=== PATIENT | female | born 1930 | race Caucasian/White ===

== ENCOUNTER → 2016-10-03 | Outpatient (CLI) | payer MEDICARE ==
[~2016-10-03] VITALS: Ht 149.9 cm; Wt 62.1 kg
[~2016-10-03] MED LIST: ALPR0.254 PO; AMLO10TA2 PO; ASPI-983 PO; ATEN100T PO; ATOR10TA PO; CALC-654 PO; CATHETER FLUSH 10 ML SYR IV PRN; CHOL20003 PO; CLOP75TA28 PO; CNC1KV IJ; D-HIST PO; FLUT16SP22 NS; LEVO112T55 PO; MELO15TA14 PO; MULT-422 PO; REGADENOSON 0.4 MG/5 ML SYR (LEXISCAN) IV ONE; SULF1TAB35 PO; TURM500C4 PO
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
[2016-10-03 08:05] VITALS: BP 185/76
[2016-10-03 08:08] VITALS: BP 176/74
[2016-10-03 08:11] VITALS: BP 155/67
--- NOTE | 2016-10-03 18:30 | STRESS TEST ---
PROCEDURE PHYSICIAN: MIRIAM THORPE DATE OF PROCEDURE: 10/03/2016 NUCLEAR MYOVIEW REPORT REFERRING PHYSICIAN: Dr. Guerra. SUMMARY: The patient was injected with 10.09 mCi of technetium 99 Myoview and the resting images were obtained. With peak stress level, 32.3 mCi of technetium 99 Myoview were injected and the stress images were obtained. The stress and rest images were reviewed and compared in the short axis, horizontal long axis, and vertical long axis views. Review of the images showed breast attenuation with mild decreased uptake involving the mid to apical anterior wall, anterolateral wall, with mild reversibility. SSS 5, SDS 5. TID. value 1.15. On the gated images, the left ventricle appeared to be normal size with normal contractility. Calculated ejection fraction 75%. CONCLUSION: 1. Breast attenuation with mild ischemia involving the mid to apical anterior wall. 2. Normal left ventricular size with normal contractility. Calculated ejection fraction 75%. Job ID: [id number] Dictated Date: 10/03/2016 16:59:02 Preparing Box Tender Date: 10/03/2016 18:27:19 / [place]
== END ==
LOC: CARD 06:40
PROVIDERS: ATTEND Internal Medicine
DX: R53.83 Other fatigue (principal); I11.0 Hypertensive heart disease with heart failure; I51.9 Heart disease, unspecified; R07.9 Chest pain, unspecified
CPT/HCPCS: 78452; 93017

== ENCOUNTER → 2016-10-12 | Outpatient (CLI) | payer MEDICARE ==
[~2016-10-12] MED LIST changes: -CATHETER FLUSH 10 ML SYR IV PRN; -REGADENOSON 0.4 MG/5 ML SYR (LEXISCAN) IV ONE
--- NOTE | 2016-10-12 21:37 | ECHOCARDIOGRAPHY REPORT ---
PROCEDURE PHYSICIAN: MIRIAM THORPE DATE OF PROCEDURE: 10/12/2016 TWO DIMENSIONAL ECHOCARDIOGRAM REPORT PRIMARY PHYSICIAN: OTHER PHYSICIAN: REFERRING PHYSICIAN: Dr. Esa Guerra ORDERING PHYSICIAN: INDICATION FOR THE PROCEDURE: MEASUREMENTS DERIVED VALUES LV DIAMETER (LAX) NORMALS NORMALS Diastolic 3.7 (3.6-5.2) Eject. Fract. 60% (60%+/-6%) Systolic (2.3-3.9) Diastolic Vol. % Shortening (0.22-0.42) Systolic Vol. Aortic Root IVS THICKNESS Diastolic 1.1 (0.6-1.1) LVPW THICKNESS Diastolic 1.1 (0.6-1.1) LA DIAMETER Systolic 3.9 (2.1-3.7) FINDINGS: 1. Technical quality is good. 2. The left ventricle is normal in size with normal contractility. Systolic function appeared to be normal. Estimated ejection fraction 60%. Diastolic dysfunction is suggested by Doppler. 3. The left atrium is normal in size. No clot or thrombus were seen within the left atrium. 4. The right atrium and right ventricle are prominent. No clot or thrombus were seen within the right side. 5. Mitral valve is normal in morphology with mild mitral regurgitation noted by color Doppler flow. No mitral valve prolapse. No mitral valve stenosis. 6. Aortic valve is trileaflet with normal opening and closing pattern. No significant aortic stenosis or regurgitation was seen. 7. Tricuspid valve is normal in morphology with mild tricuspid regurgitation noted by color Doppler flow. Doppler across tricuspid valve estimated pulmonary artery pressure of 45+ right atrial pressure. 8. Pulmonic valve is functioning normally. 9. No pericardial effusion. CONCLUSION: 1. Normal left ventricular size and systolic function. Estimated ejection fraction 60%. Diastolic dysfunction is suggested by Doppler. 2. Prominent right heart chambers with pulmonary hypertension with estimated pulmonary artery pressure of 50 to 55 mmHg. 3. Mild mitral and tricuspid regurgitation. Job ID: [id number] Dictated Date: 10/12/2016 17:16:39 Rental Car Porter Date: 10/12/2016 21:33:37 / [place]
== END ==
LOC: CARD 12:44
PROVIDERS: ATTEND Internal Medicine
DX: R53.83 Other fatigue (principal); I10 Essential (primary) hypertension; R07.9 Chest pain, unspecified; I27.2 Other secondary pulmonary hypertension; I08.1 Rheumatic disorders of both mitral and tricuspid valves
CPT/HCPCS: 93306

== ENCOUNTER 2016-11-24 07:40 | Day surgery (SDC) | payer MEDICARE ==
[2016-11-24] VITALS (9 sets, daily range): BP systolic 106–183; BP diastolic 62–80
[~2016-11-24] VITALS: Ht 149.9 cm; Wt 59.0 kg
[~2016-11-24 07:40] MED LIST changes: -ALPR0.254 PO; -ASPI-983 PO; -ATOR10TA PO; -CALC-654 PO; -CHOL20003 PO; -CLOP75TA28 PO; -CNC1KV IJ; -D-HIST PO; -MULT-422 PO; -TURM500C4 PO
[2016-11-24] MEDS ORDERED: NS IV 1000 ML 1,000 ML ONE (07:48)
[2016-11-24] MEDS ORDERED: HEParin (CATH LAB) 2,000 ML IV ONE (07:48)
[2016-11-24] MEDS ORDERED: LIDOCAINE 1% INJ 20 ML (XYLOCAINE) VIAL ONE (07:48)
[2016-11-24] MEDS ORDERED: NS IV 1000 ML 1,000 ML IV SCH ×2 (07:56→08:15)
[2016-11-24 08:20] LABS: BILIRUBIN,URINE NEGATIVE (NEGATIVE); KETONES,URINE NEGATIVE (NEGATIVE); LEUKOCYTE ESTERASE ,URINE 2+ (NEGATIVE); NITRITE,URINE NEGATIVE (NEGATIVE); PH,URINE 6.5 (5-9); PROTEIN,URINE NEGATIVE (NEGATIVE); UROBILINOGEN,URINE NORMAL (NORMAL)
[2016-11-24 08:20] LABS: MEAN PLATELET VOLUME 9.3 FL (7.4-10.4); RED BLOOD COUNT 4.85 10^6/uL (4.35-5.85); RED CELL DISTRIBUTION WIDTH 14.8 % (10.0-14.5); WHITE BLOOD COUNT 7.9 10^3/uL (4.3-11.0)
[2016-11-24 08:30] LABS: PROTHROMBIN TIME PATIENT 12.8 SEC (12.2-14.7)
[2016-11-24 08:38] LABS: ALANINE AMINOTRANSFERASE 10 U/L (0-55); ANION GAP 10 MMOL/L (5-14); ASPARTATE AMINO TRANSFERASE 13 U/L (5-34); BILIRUBIN,TOTAL 1.3 MG/DL (0.1-1.0); BLOOD UREA NITROGEN 19 MG/DL (7-18); BUN/CREATININE RATIO 24; CALCIUM 9.5 MG/DL (8.5-10.1); CARBON DIOXIDE 23 MMOL/L (21-32); CHLORIDE 106 MMOL/L (98-107); CREATININE SERUM 0.79 MG/DL (0.60-1.30); GFR ESTIMATED > 60; GLUCOSE 103 MG/DL (70-105); POTASSIUM 4.1 MMOL/L (3.6-5.0); SODIUM 139 MMOL/L (135-145); TOTAL PROTEIN 6.7 G/DL (6.4-8.2)
[2016-11-24] MEDS ORDERED: MULT-422 PO (08:54)
[2016-11-24] MEDS ORDERED: CNC1KV IJ (08:54)
[2016-11-24] MEDS ORDERED: CHOL20003 PO (08:54)
[2016-11-24] MEDS ORDERED: CALC-654 PO (08:54)
[2016-11-24] MEDS ORDERED: TURM500C4 PO (08:54)
[2016-11-24] MEDS ORDERED: D-HIST PO (08:54)
[2016-11-24] MEDS ORDERED: ALPR0.254 PO (08:54)
[2016-11-24] MEDS ORDERED: MIDAZOLAM 5 MG/5 ML (VERSED) VIAL ONE (10:53)
[2016-11-24] MEDS ORDERED: fentaNYL INJECTION 100 MCG/2 ML AMP ONE (10:53)
--- NOTE | 2016-11-24 11:05 | Cardiac Procedure Note-CS/ASA ---
Pre-Procedure Note Pre-Op Procedure Note H&P Reviewed The H&P was reviewed, patient examined and no changes noted. Date H&P Reviewed: November 24, 2016 Time H&P Reviewed: 11:05 Conscious Sedation Pre-Proced Time Reviewed: 11:05 ASA Class: 3 Airway Mallampati Classification: (nooksack appropriate class) I. II. III, IV Lungs Heart ASA score ASA 1: a normal healthy patient ASA 2: a patient with a mild systemic disease (mid diabetes, controlled hypertension, obesity ASA 3: a patient with a severe systemic disease that limits activity (angina , COPD, prior Myocardial infarction) ASA 4: a patient with an incapacitating disease that is a constant threat to life (CHF, renal failure) ASA 5: a moribund patient not expected to survive 24 hrs. (ruptured aneurysm) ASA 6: a declared brain patient whose organs are being harvested. For emergent operations, add the letter E after the classification Grade 1 Sedation Plan: Analgesia, Amnesia, Plan communicated to team members, Discussed options with patient/fam, Discussed risks with patient/fam Note The patient is an appropriate candidate to undergo the planned procedure, sedation, and anesthesia. The patient immediately re-assessed prior to indication. Ash RODRIGUEZ MD November 24, 2016 11:05 am
[2016-11-24] MEDS ORDERED: HEParin 1000 UNIT/ML (10ML VIAL) FOR BOLUS ONE (12:01)
[2016-11-24] MEDS ORDERED: ADENOSINE 3 MG/1 ML (ADENOSCAN) 30ML VIAL IV ONE (12:01)
[2016-11-24] MEDS ORDERED: CLOPIDOGREL 300 MG (PLAVIX) TABLET PO ONE (12:20)
[2016-11-24] MEDS ORDERED: NITROGLYCERIN DRIP 25 MG/D5W 0 ML IV ONE (12:31)
--- NOTE | 2016-11-24 13:00 | Cardiology Post Procedure Note ---
Post-Procedure Note Post-Op Procedure Note Procedure Start Date: November 24, 2016 Procedure Start Time: 11:30 Name of Procedure: LHC, RHC, Coronary Angiography, FFR and PCI to LAD Findings/Procedure Note Mild Pulmonary Hypertension, Normal PCWP, Severe LAD stenosis treated with two JOVANY (Xience [id number] and 2.5x15mm overlap) . Anesthesia Type: Conscious Sedation Estimated blood loss (mL): 30 ml Contrast Amount: 246 ml Post-Operative Diagnosis Post-operative diagnosis: Severe LAD disease treated with 2 JOVANY Ash RODRIGUEZ MD November 24, 2016 1:00 pm
[2016-11-24] MEDS ORDERED: PATIENT MAY USE OWN MEDS, ALL PO SCH (13:15)
[2016-11-24] MEDS: NS IV 1000 ML 1,000 ML IV SCH ×2 (13:25→17:01)
--- NOTE | 2016-11-24 17:51 | CARDIAC CATHETERIZATION ---
DATE OF SERVICE: 11/24/2016 CORONARY ANGIOGRAPHY AND LEFT HEART CATHETERIZATION INDICATION: 1. Recurrent chest pain, abnormal nuclear stress test. 2. Pulmonary hypertension. PREOPERATIVE DIAGNOSES: Chest pain, shortness of breath, abnormal nuclear stress test. POSTOPERATIVE DIAGNOSES: 1. Severe left anterior descending disease, status post percutaneous coronary intervention to the left anterior descending with two drug eluting stent. 2. Mild pulmonary hypertension with normal wedge pressure. HISTORY: The patient is an 86-year-old lady who presented with chest pain and shortness of breath. Nuclear stress test was done which showed anterior ischemia. Echocardiogram showed normal LV function, however, PA pressure was 55 mmHg. Therefore, left heart catheterization, coronary angiography and right heart catheterization was recommended. PROCEDURES PERFORMED: 1. Left heart catheterization. 2. Right heart catheterization. 3. Coronary angiography. 4. Fractional flow reserve to the left anterior descending. 5. Percutaneous coronary intervention to the mid distal left anterior descending with two drug eluting stents. COMPLICATIONS: None. BLOOD LOSS: 20 mL. ANTICOAGULATION: IV heparin. SPECIMENS: None. CONTRAST: 246 mL of Omnipaque. FLUOROSCOPY TIME: 16.6 minutes. FLUOROSCOPY DOSE: 886 mGy. PROCEDURE DETAILS: The patient was brought to the technology lab teacher after informed consent was taken. All the risks and complications were explained in detail. She was draped and prepped in the usual sterile fashion. Access was gained in the right femoral artery with a 6-Malay sheath and right femoral vein with a 7-Malay sheath. Right heart catheterization was performed with a [place] catheter. A left heart catheterization was performed with a Pigtail catheter. Left coronary artery system was engaged with a JL4 catheter and the right coronary artery system was engaged with a JR4 catheter. FINDINGS: 1. Right heart catheterization: PA pressure 32/14 mmHg. Mean PA pressure 22 mmHg. Wedge pressure 13 mmHg. RV pressure 35/3 mmHg. RA pressure 5 mmHg. This suggests mild pulmonary hypertension. However, since the mean PA pressure is below 25 and the wedge pressure is below 15, no further vasodilator study is recommended. 2. Left heart catheterization: LV pressure 126/-1. LVEDP 17 mmHg. Aortic pressure 124/67 mmHg. Hypodynamic LV function with EF of 70% to 75% with no wall motion abnormalities. There was no gradient across the aortic valve. Mild to moderate mitral regurgitation was noted. 3. RCA: Mild disease in the mid RCA (20% to 30% stenosis). There is mild disease in the distal RCA. No severe stenosis is noted. 4. Left main: Patent. 5. Left circumflex artery: Mild. Proximal left circumflex disease. There is a large obtuse marginal artery which is very tortuous. There is mild disease noted in the proximal obtuse marginal artery. 6. LAD: Moderate to severe stenosis is noted in the mid LAD (60% to 70% stenosis). There is also severe hazy disease in the distal LAD with probably 70% to 80% stenosis. Significant tortuosity is noted in the mid and distal LAD. RECOMMENDATION: 1. FFR to the LAD is recommended. FFR/PCI details: JL4 guide catheter, IV heparin for anticoagulation and FFR wire as a guide wire. ACT during the procedure was 211 seconds. We crossed the lesions in the mid and distal LAD with difficulty due to significant tortuosity. Baseline FFR was 0.90. Adenosine 140 mcg/kg/min was started. Adenosine infusion was given for 2.5 minutes. Lowest FFR was 0.74 which is significantly abnormal, therefore PCI is recommended. 600 mg bolus Plavix was given on the cath-lab table. We used the same FFR wire as the guide wire. The distal LAD lesion was treated with a direct stent 2.25 x 28 Xience Alpine at 16 atmospheres for 49 seconds. We then took 2.5 x 15 XIENCE Alpine Brantley stent and overlapped it with the distal stent and covered the mid LAD lesion. This stent was placed at 16 atmospheres for 30 seconds. We used the same strength balloon and post dilated both the distal stent and overlap twice with 18 atmospheres for 30 seconds. The balloon was taken out and post dilatation angiogram showed excellent results with good distal flow. Please note that initial WALE flow was 2 and the final WALE score was 3. Final residual stenosis was 0%. The wire was taken out and post PCI angiogram showed no vascular complication with excellent results. The patient tolerated the procedure well. The femoral artery was closed with Mynx device. IMPRESSION/CONCLUSION: 1. Mild pulmonary hypertension with normal wedge pressure. Vasodilator study not recommended. 2. Coronary angiography showed moderate to severe mid/distal left anterior descending stenosis. Fractional flow reserve was significantly abnormal at 0.74. Mid to distal left anterior descending was treated with two drug eluting stents. 3. Aspirin and Plavix for at least a year. Aggressive secondary prevention measures for coronary artery disease is recommended. Job ID: [id number] DocumentID: [id number] Dictated Date: 11/24/2016 15:04:10 Special Technical Operations Officer Date: 11/24/2016 16:28:27 Dictated By: CHANTELLE RODRIGUEZ MD MTDD
[2016-11-24] MEDS ORDERED: ALPRAZolam 0.25 MG (XANAX) TAB PO PRN (21:00)
[2016-11-25] VITALS: BP 122/74
[2016-11-25 04:00] VITALS: BP 143/74
[2016-11-25 05:27] LABS: MEAN PLATELET VOLUME 9.8 FL (7.4-10.4); RED BLOOD COUNT 4.54 10^6/uL (4.35-5.85); RED CELL DISTRIBUTION WIDTH 14.9 % (10.0-14.5); WHITE BLOOD COUNT 7.1 10^3/uL (4.3-11.0)
[2016-11-25 05:43] LABS: ANION GAP 10 MMOL/L (5-14); BLOOD UREA NITROGEN 15 MG/DL (7-18); BUN/CREATININE RATIO 20; CALCIUM 8.7 MG/DL (8.5-10.1); CARBON DIOXIDE 22 MMOL/L (21-32); CHLORIDE 105 MMOL/L (98-107); CREATININE SERUM 0.75 MG/DL (0.60-1.30); GFR ESTIMATED > 60; GLUCOSE 84 MG/DL (70-105); POTASSIUM 3.9 MMOL/L (3.6-5.0); SODIUM 137 MMOL/L (135-145)
[2016-11-25 08:22] VITALS: BP 136/74
[2016-11-25] MEDS ORDERED: CLOPIDOGREL 75 MG (PLAVIX) TABLET PO SCH (09:00)
[2016-11-25] MEDS ORDERED: ASPIRIN E.C. 81 MG (ECOTRIN) TAB PO SCH (09:00)
[2016-11-25] MEDS ORDERED: ASPI-983 PO (09:51)
[2016-11-25] MEDS ORDERED: CLOP75TA28 PO (09:51)
[2016-11-25] MEDS ORDERED: ATOR10TA PO (09:56)
--- NOTE | 2016-11-25 11:45 | Cardiology Discharge Summary ---
Diagnosis/Chief Complaint Date of Admission 11/24/2016 Date of Discharge 11/25/2016 Admission Diagnosis Pulmonary hypertension, chest pain, shortness of breath, abnormal nuclear stress test Final/Discharge Diagnosis Mild pulmonary hypertension, vasodilator study not done. Severe LAD disease, 2 drug-eluting stents done Chief Complaint/HPI Chief Complaint/HPI Chest pain, shortness of breath, abnormal nuclear stress test. Discharge Summary Procedures Right heart catheterization showed mild primary hypertension, normal wedge pressure. Left heart catheterization showed normal LV function. Coronary angiography showed moderate to severe mid/distal LAD stenosis, abnormal FFR, PCI with 2 drug-eluting stents. Discharge Physical Examination Stable cardiovascular and pulmonary exam. Stable right groin with no bruit. Hospital Course Stable Pending Labs Laboratory Tests 11/25/16 04:10: White Blood Count 7.1, Red Blood Count 4.54, Hemoglobin 12.9, Hematocrit 40, Mean Corpuscular Volume 88, Mean Corpuscular Hemoglobin 28, Mean Corpuscular Hemoglobin Concent 32, Red Cell Distribution Width 14.9, Platelet Count 246, Mean Platelet Volume 9.8, Sodium Level 137, Potassium Level 3.9, Chloride Level 105, Carbon Dioxide Level 22, Anion Gap 10, Blood Urea Nitrogen 15, Creatinine 0.75, Estimat Glomerular Filtration Rate > 60, BUN/Creatinine Ratio 20, Glucose Level 84, Calcium Level 8.7 Discussion & Recommendations Discussion Aspirin and Plavix for at least a year. Post coronary angiography instructions explained to the patient. Follow up appt.: Dr. Muse in 2 weeks Dicharge Diet: Cardiac Diet Home Medications Reviewed patient Home Medication Reconciliation Form Discharge Home Medications: Reviewed and agree with Discharge Medication list on patient's Discharge Instruction sheet Condition at discharge Stable Instructions to patient/family Follow-up with Dr. Muse in 2 weeks. Post cardiac catheterization instructions explained to the patient. Ash MUSE MD November 25, 2016 11:45
[2016-11-26] MEDS ORDERED: ASPIRIN E.C. 81 MG (ECOTRIN) TAB PO SCH (09:00)
== END 2016-11-25 11:20 | disposition home or self-care (01) ==
LOC: CATH 07:40 → CSD 13:25 → CATH 11-25 11:20
PROVIDERS: ATTEND Internal Medicine Interventional Cardiology
DX: I25.10 Atherosclerotic heart disease of native coronary artery without angina pectoris (principal); I27.2 Other secondary pulmonary hypertension; R07.89 Other chest pain; I10 Essential (primary) hypertension; R06.02 Shortness of breath; Z79.899 Other long term (current) drug therapy
CPT/HCPCS: 36415; 80048; 80053; 81000; 85027; 85347; 85610; 85730; 87077; 87081; 87088; 87186; 93005; 93460; 93571

== ENCOUNTER → 2017-01-19 | Outpatient (CLI) | payer MEDICARE ==
[~2017-01-19] MED LIST changes: +ALPR0.254 PO; +ASPI-983 PO; +ATOR10TA PO; +CALC-654 PO; +CHOL20003 PO; +CLOP75TA28 PO; +CNC1KV IJ; +D-HIST PO; +MULT-422 PO; +TURM500C4 PO
--- NOTE | 2017-01-19 18:09 | Diagnostic Imaging Report ---
PROCEDURE: US Thyroid. TECHNIQUE: Multiple real-time grayscale images were obtained of the thyroid in various projections. INDICATION: Thyroid nodules. FINDINGS: The right thyroid lobe is 5.2 x 3 x 1.5 cm. The left lobe is 3.4 x 2.1 x 1.2 cm. There is a hypoechoic thyroid nodule measuring 1.5 x 0.9 x 1.4 cm in size. This is demonstrating no significant change from prior exams including 03/24/2015. IMPRESSION: Enlarged heterogeneous thyroid gland with stable hypoechoic 1.5 cm nodule in the lower right thyroid lobe similar to the prior studies suggestive of benign etiology. Dictated by: Dictated on workstation # [id number]
== END ==
LOC: RAD 11:24
PROVIDERS: ATTEND Otolaryngology Otolaryngology/Facial Plastic Surgery
DX: E04.1 Nontoxic single thyroid nodule (principal)
CPT/HCPCS: 76536

== ENCOUNTER 2017-04-13 13:44 | Outpatient (RCR) | payer MEDICARE | END 2017-04-15 | disposition home or self-care (01) | PROVIDERS: ATTEND Internal Medicine | DX: M54.5 Low back pain (principal); I10 Essential (primary) hypertension; Z95.5 Presence of coronary angioplasty implant and graft; I25.10 Atherosclerotic heart disease of native coronary artery without angina pectoris ==

== ENCOUNTER 2017-05-26 10:15 | Outpatient (RCR) | payer MEDICARE | END 2017-05-26 10:54 | disposition home or self-care (01) | PROVIDERS: ATTEND Internal Medicine | DX: M54.5 Low back pain (principal); I10 Essential (primary) hypertension; Z95.5 Presence of coronary angioplasty implant and graft; I25.10 Atherosclerotic heart disease of native coronary artery without angina pectoris ==

== ENCOUNTER → 2017-05-31 | Outpatient (CLI) | payer MEDICARE ==
--- NOTE | 2017-06-02 08:13 | Diagnostic Imaging Report ---
Bilateral screening mammogram 2D views with tomosynthesis. The current study was also evaluated with a Computer Aided Detection (CAD) system. INDICATION: Screening. No current complaints stated on the questionnaire. COMPARISON: 05/17/2016. FINDINGS: The breasts are composed of heterogeneously dense parenchyma which may decrease mammographic sensitivity. Benign-appearing calcifications are seen. Allowing for technique and positional differences, no suspicious change is seen. IMPRESSION: Dense breasts with no definite change. ACR BI-RADS Category 2: Benign findings. Result letter will be mailed to the patient. Note: At least 10% of breast cancer is not imaged by mammography. Dictated by: Dictated on workstation # [id number]
== END ==
LOC: RAD 10:42
PROVIDERS: ATTEND Internal Medicine
DX: Z12.31 Encounter for screening mammogram for malignant neoplasm of breast (principal)
CPT/HCPCS: 77067

== ENCOUNTER 2017-10-08 12:25 | Emergency (ER) | payer MEDICARE ==
[~2017-10-08] VITALS: Ht 149.9 cm; Wt 63.0 kg
[2017-10-08] MEDS ORDERED: TETANUS,DIPTH,PERTUSS P/F (BOOSTRIX) 0.5 ML VIAL IM ONE (13:45)
--- NOTE | 2017-10-08 13:53 | Diagnostic Imaging Report ---
PROCEDURE: CT head and CT cervical spine without contrast. TECHNIQUE: Multiple contiguous axial images were obtained through the brain and cervical spine without the use of intravenous contrast. Sagittal and coronal reformations through the cervical spine were then performed. INDICATION: Fell, head and neck pain. There are no previous studies available for comparison. CT head: FINDINGS: There is a sizable 1.0 x 4.7 cm hematoma in the soft tissues anterior to the frontal bone. The bone windows show no sign of a skull fracture in this area. There is no acute intracranial abnormality identified either. There is no mass, shift of the midline or hemorrhage. The ventricles are not abnormally dilated. There is cortical atrophy. The degree of atrophy is consistent with the patient's age. The orbits are symmetrical and within normal limits. The sinuses are generally clear. IMPRESSION: 1. There is hematoma formation over the frontal bones. There is no sign of a skull fracture. There is no acute intracranial abnormality noted otherwise. 2. If the patient is anticoagulated and if the patient's symptoms persist, then a short-term (24 hour) followup CT head exam would be recommended. 3. These results were discussed with JORDYN Anaya. CT cervical spine: FINDINGS: The reconstructed sagittal images show severe degenerative disc and bony disease at C3-C4 and C5-C6. There does not appear to be any significant central stenosis at either of these levels, however. There is no fracture or acute bony abnormality noted. There is no sign of retropharyngeal edema. The thyroid gland is not well visualized. There is scar formation in both lung apices, particularly on the right. IMPRESSION: 1. There is no evidence for an acute bony abnormality of the cervical spine. 2. 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 Dictated by: Dictated on workstation # [id number]
[2017-10-08] MEDS ORDERED: ACETAMINOPHEN 500 MG TAB (TYLENOL) ONE (13:55)
[2017-10-08] MEDS ORDERED: ACETAMINOPHEN 500 MG TAB (TYLENOL) PO ONE (14:00)
--- NOTE | 2017-10-08 14:05 | ED Head Injury ---
General Chief Complaint: Trauma-Non Activation Stated Complaint: FACIAL LACERATION FROM FALL STILL BLEEDING Nursing Triage Note: TO ROOM REPORTS FELL OVER CURVE. LACERATION TO FOREHEAD NO LOC. Source: patient (DHARA HOLGUIN DO) History of Present Illness Date Seen by Provider: Oct 08, 2017 Time Seen by Provider: 13:19 Initial Comments PT ARRIVES VIA POV PT STEPPED OFF A CURB AND FELL FACE FIRST ONTO PAVEMENT NO LOSS OF CONSCIOUSNESS HAS LACERATION TO FOREHEAD AND BRUISING AND SWELLING AROUND FOREHEAD AND EYES PT STATES SHE IS ON ASPIRIN + PLAVIX NO NECK PAIN NO VISION CHANGES ( OTHER THAN BREAKING HER GLASSES) NO MOUTH INJURY NO NAUSEA/VOMITING NO DIZZINESS NO PARESTHESIAS OR MOTOR DEFICITS C/O BILATERAL HAND /FINGER PAIN NO BACK PAIN NO HIP OR LEG PAIN OR PAIN WITH WALKING. PCP: DR. ROSADO (DHARA HOLGUIN DO) Allergies and Home Medications Allergies Coded Allergies: Penicillins (Verified Allergy, Unknown, 06/29/16) ciprofloxacin (Verified Allergy, Unknown, 06/29/16) levofloxacin (Verified Allergy, Unknown, 06/29/16) Home Medications Alprazolam 0.25 Mg Tablet, 0.125 MG PO HS PRN for SLEEP, (Reported) TAKES 1/2 (0.25MG) TABLET Amlodipine Besylate 10 Mg Tablet, 10 MG PO DAILY, (Reported) Aspirin 81 Mg Tablet.dr, 0 MG PO DAILY Prescribed by: MISHA ACKERMAN on 11/25/16950 Atenolol 100 Mg Tablet, 100 MG PO DAILY, (Reported) Atorvastatin Calcium 10 Mg Tablet, 10 MG PO DAILY Prescribed by: MISHA ACKERMAN on 11/25/16955 Calcium Carbonate/Vitamin D3 1 Each Tablet, 1 TAB PO BID, (Reported) Cholecalciferol (Vitamin D3) 2,000 Unit Capsule, 2,000 UNIT PO DAILY, (Reported) Clopidogrel Bisulfate 75 Mg Tablet, 75 MG PO DAILY Prescribed by: MISHA ACKERMAN on 11/25/16950 Cyanocobalamin 1,000 Mcg/Ml Inj, 1,000 MCG IJ MONTHLY, (Reported) Fluticasone Propionate 16 Gm [place].susp, 2 SPRAYS NS HS, (Reported) Levothyroxine Sodium 112 Mcg Tablet, 112 MCG PO DAILY, (Reported) Multivitamin with Minerals 1 Each Tablet, 1 TAB PO DAILY, (Reported) Turmeric Root Extract 500 Mg Capsule, 500 MG PO DAILY, (Reported) [D-Hist] , 1 CAP PO DAILY, (Reported) Patient Home Medication List Home Medication List Reviewed: Yes (DHARA HOLGUIN DO) Constitutional: no symptoms reported Eyes: No Symptoms Reported Ears, Nose, Mouth, Throat: see HPI Respiratory: no symptoms reported Cardiovascular: no symptoms reported Gastrointestinal: no symptoms reported Genitourinary: no symptoms reported Musculoskeletal: see HPI Skin: see HPI Psychiatric/Neurological: No Symptoms Reported, Denies Cognitive Dysfunction, Denies Headache, Denies Numbness, Denies Tingling, Denies Weakness Endocrine: No Symptoms Reported Hematologic/Lymphatic: No Symptoms Reported (DHARA HOLGUIN DO) Past Zkuybee-Ckngzq-Apkqfe Hx Patient Social History Alcohol Use: Denies Use Recreational Drug Use: No Smoking Status: Never a Smoker Recent Foreign Travel: No Contact w/Someone Who Travel: No Recent Infectious Disease Expo: No Recent Hopitalizations: No (DHARA HOLGUIN DO) Immunizations Up To Date Date of Pneumonia Vaccine: Mar 27, 2016 (DHARA HOLGUIN DO) Surgeries History of Surgeries: Yes (CARDIAC CATHS-STENTS X2 ) Surgeries: Adenoidectomy, Cardiac, Coronary Stent, Hysterectomy, Tonsillectomy (DHARA HOLGUIN DO) Respiratory History of Respiratory Disorde: Yes ( FREQUENT BRONCHITIS ) (DHARA HOLGUIN DO) Cardiovascular History of Cardiac Disorders: Yes (CARDIAC STENTS X 2) Cardiac Disorders: Coronary Artery Disease, High Cholesterol, Hypertension (ATIF HOLGUINA Itzel DO) Neurological History of Neurological Disord: No (DHARA HOLGUIN DO) Reproductive System Hx Reproductive Disorders: No (DHARA HOLGUIN DO) Genitourinary History of Genitourinary Disor: No (EZIOATIFA K DO) Gastrointestinal History of Gastrointestinal Di: No (ATIF HOLGUINA K DO) Musculoskeletal History of Musculoskeletal Dis: Yes Musculoskeletal Disorders: Arthritis (DHARA HOLGUIN DO) Endocrine History of Endocrine Disorders: Yes Endocrine Disorders: Hypothyroidsim (ATIF HOLGUINA K DO) HEENT History of HEENT Disorders: Yes Hearing Impairment: Hard of Hearing, Bilateral Hearing Aide (ATIF HOLGUINA K DO) Cancer History of Cancer: No (ATIF HOLGUINA Itzel DO) Psychosocial History of Psychiatric Problem: No (DHARA HOLGUIN DO) Integumentary History of Skin or Integumenta: No (DHARA HOLGUIN DO) Blood Transfusions History of Blood Disorders: No (EZIODHARAChapito Robbins DO) Physical Exam Vital Signs Vital Signs - First Documented 10/08/17 13:00 Temp 98.0 Pulse 80 Resp 18 B/P (MAP) 193/95 (127) Pulse Ox 98 (FLAQUITA THOMPSON) Vital Signs Capillary Refill : Less Than 3 Seconds (DHARA HOLGUIN DO) General Appearance: WD/WN, no apparent distress HEENT: PERRL/EOMI, TMs normal (EXCEPT SCLEROTIC), pharynx normal (NO ORAL INJURY), other (MODERATE SWELLING TO FOREHEAD AND MOSTLY LEFT PERIORBITAL AREA, WELL BRIDGE OF NOSE, WITH EARLY BRUISING NOTED. HAS 3 CM V-SHAPED/ IRREGULAR FULL THICKNESS LACERATION TO FORHEAD AND 1 CM SUPERFICIAL LACERATION TO BRIDGE OF NOSE. ) Neck: non-tender, full range of motion, supple, normal inspection Cardiovascular: normal peripheral pulses, regular rate, rhythm, no edema, no JVD, no murmur Respiratory: chest non-tender, normal breath sounds, no respiratory distress, no accessory muscle use Gastrointestinal: normal bowel sounds, non tender, soft Back: normal inspection, no CVA tenderness, no vertebral tenderness Extremities: no pedal edema, no calf tenderness, normal capillary refill, other (MODERATE SWELLING, BRUISING AND TENDERNESS TO DORSUM OF RIGHT HAND AND 4TH AND 5TH FINGERS, WELL DORSUM OF LEFT HAND OVER 4TH MCP JOINT. ALSO HAS TENDERNESS TO RIGHT WRIST. DISTAL MOTOR/SENSORY / VASCULAR INTACT. ) Psychiatric: alert, oriented x 3 Cra[place] Nerves: normal hearing, normal speech, PERRL Coordination/Gait: normal gait Motor/Sensory: no motor deficit, no sensory deficit, no pronator drift Skin: normal color, warm/dry, ecchymosis, other (LACERATIONS ABOVE) (DHARA HOLGUIN DO) Zach Coma Score Best Eye Response: (4) Open Spontaneously Best Verbal Response: (5) Oriented Best Motor Response: (6) Obeys Commands [place] Total: 15 (DHARA HOLGUIN DO) Laceration Repair : Progress REPAIR DONE BY JORDYN ELMORE--SEE HER LACERATION NOTES ABOVE (DHARA HOLGUIN DO) Laceration Repair #1: Wound Location: Face (forehead) Wound Length (cm): 3 Wound's Depth, Shape: irregular, contused tissue Wound Explored: clean Betadine Prep?: Yes (and scrubbed vigorously with chlorhexidine and sterile saline) Anesthesia: Lidocaine w/ Epi (2% lidocaine with epi) Volume Anesthetic (ccs): 3 Wound Debrided: minimal Suture: Vicryl Suture Size: 3-0 Other Closure Supply: Wound Adhesive (dermabond used to reapproximate skin edges.) Layer Closure?: 2 Number Deep Layer Sutures: 4 Sterile Dressing Applied?: Yes Progress 1 small arterial bleed noted. 1 figure of eight suture placed to obtain hemostasis. Blood loss minimal. Patient tolerated the procedure well. Laceration Repair #2: Wound Location: Other (bridge of the nose) Wound Length (cm): 1 Wound's Depth, Shape: superficial, flap Wound Explored: clean Betadine Prep?: No (wound scrubbed with chlorhexidine and sterile saline) Other Closure Supply: Wound Adhesive Progress Blood loss minimal. Patient tolerated the procedure well. (FLAQUITA THOMPSON) Splinting and Joint Reduction : Cooper wrap: Yes Hand-Made Type: ALUMINUM FOAM Splint Application: Short Arm (DHARA HOLGUIN DO) Progress/Results/Core Measures Results/Orders My Orders Orders - FLAQUITA THOMPSON Ct Head/Cervical Spine Wo (10/08/17 13:08) (FLAQUITA THOMPSON) Medications Given in ED Current Medications Medications Dose Ordered Sig/Tati Route Start Time Stop Time Status Last Admin Dose Admin Acetaminophen 500 mg STK-MED ONCE .ROUTE 10/08/17 13:55 10/08/17 13:58 DC 10/08/17 14:02 500 MG Lidocaine/ Epinephrine 20 ml STK-MED ONCE .ROUTE 10/08/17 14:19 10/08/17 14:22 DC 10/08/17 14:38 20 ML (FLAQUITA THOMPSON) Vital Signs/I&O Vital Sign - Last 12Hours 10/08/17 13:00 Temp 98.0 Pulse 80 Resp 18 B/P (MAP) 193/95 (127) Pulse Ox 98 (FLAQUITA THOMPSON) Blood Pressure Mean: 127 Progress Note : Progress Note UNEVENTFUL ER STAY PT STATES THE ONLY THING SHE CAN TAKE FOR PAIN IS TYLENOL AND SHE IS "ALLERGIC TO ALL ANTIBIOTICS" (DHARA HOLGUIN DO) Diagnostic Imaging Comments CT HEAD/CERVICAL SPINE--SOFT TISSUE SWELLING TO FOREHEAD, OTHERWISE NO ACUTE INTRACRANIAL INJURY OR CERVICAL SPINE INJURY. PER RADIOLOGIST REPORT @ 1345 XRAYS OF BILATERAL HANDS AND RIGHT WRIST--FX RIGHT 4TH METACARPAL-PER RADIOLOGIST REPORT @ 1450 (DHARA HOLGUIN DO) Departure Impression Impression: Primary Impression: Status post fall Additional Impressions: Head contusion Forehead laceration CERVICAL SPINE STRAIN Minor head injury without loss of consciousness ANTICOGULATION THERAPY Fracture of fourth metacarpal bone of right hand Contusion of left hand including fingers Right wrist sprain Periorbital hematoma Disposition: 01 HOME, SELF-CARE Condition: Stable Departure-Patient Inst. Referrals: JEREMIAH ROSADO DO (PCP/Family) Primary Care Physician DAREN MCDONNELL MD Patient Instructions: Cervical Muscle Strain (DC), Hand Fracture (DC), Laceration Repair With Glue (DC), Laceration Repair With Stitches (DC), Minor Head Injury (DC), Skin Abrasions (DC) Add. Discharge Instructions: WEAR SPLINT AT ALL TIMES ICE TO SORE AREAS AT 20 MINUTE INTERVALS ELEVATE HAND MUCH POSSIBLE TYLENOL NEEDED FOR PAIN CLEAN WOUND TWICE A DAY WITH ANTIBACTERIAL SOAP AND WATER ON A Q-TIP, OTHERWISE KEEP CLEAN AND DRY SUTURES OUT IN 5 -6 DAYS All discharge instructions reviewed with patient and/or family. Voiced understanding. Images Head/Face Progress SEE ADDITIONAL PAPER DIAGRAMS FOR IMAGES (DHARA HOLGUIN DO) DHARA HOLGUIN DO Oct 08, 2017 14:04 FLAQUITA THOMPSON Oct 08, 2017 15:40
[2017-10-08] MEDS ORDERED: LIDOCAINE/EPI 2% 1:100,00 (XYLOCAINE) 20 ML VIAL ONE (14:19)
--- NOTE | 2017-10-08 14:31 | Diagnostic Imaging Report ---
INDICATION: Fall, bilateral hand pain 3 views of each hand were obtained. On the left there is no fracture, dislocation or other acute bony abnormality. There are advanced degenerative changes of the wrist. On the right there is an oblique fracture involving the shaft of the fourth metacarpal with less than 5 mm of displacement. There is no significant angulation. Joints are not involved. There are advanced degenerative changes of the right wrist. IMPRESSION: There is a mildly displaced oblique fracture of the fourth metacarpal of the right hand. There are degenerative changes seen bilaterally. Dictated by: Dictated on workstation # [id number]
--- NOTE | 2017-10-08 14:32 | Diagnostic Imaging Report ---
INDICATION: Fall, right wrist pain 3 views of the right wrist shows an oblique fracture of the shaft of the fourth metacarpal with slight displacement but no angulation. There are advanced degenerative changes of the wrist with loss of the wrist joint space between the radial carpal joint. 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 There is narrowing and hypertrophic spurring at the carpometacarpal joint of the thumb. Impression: There are degenerative changes of the wrist. There is an oblique fracture of the fourth metacarpal. Dictated by: Dictated on workstation # [id number]
[2017-10-08 15:58] VITALS: BP 174/84
== END 2017-10-08 15:58 | disposition home or self-care (01) ==
LOC: EDUNIT# 12:25 → ER 12:26
DX: S09.90XA Unspecified injury of head, initial encounter (principal); S62.304A Unspecified fracture of fourth metacarpal bone, right hand, initial encounter for closed fracture; S01.81XA Laceration without foreign body of other part of head, initial encounter; S13.4XXA Sprain of ligaments of cervical spine, initial encounter; S63.501A Unspecified sprain of right wrist, initial encounter; S05.10XA Contusion of eyeball and orbital tissues, unspecified eye, initial encounter; R40.2142 Coma scale, eyes open, spontaneous, at arrival to emergency department; R40.2252 Coma scale, best verbal response, oriented, at arrival to emergency department; R40.2362 Coma scale, best motor response, obeys commands, at arrival to emergency department; I25.10 Atherosclerotic heart disease of native coronary artery without angina pectoris; E78.00 Pure hypercholesterolemia, unspecified; I10 Essential (primary) hypertension; E03.9 Hypothyroidism, unspecified; Z79.82 Long term (current) use of aspirin; Z79.02 Long term (current) use of antithrombotics/antiplatelets; Z88.0 Allergy status to penicillin; Z88.1 Allergy status to other antibiotic agents; Z79.51 Long term (current) use of inhaled steroids; Z90.710 Acquired absence of both cervix and uterus; Z95.5 Presence of coronary angioplasty implant and graft; Z90.89 Acquired absence of other organs; W18.30XA Fall on same level, unspecified, initial encounter
CPT/HCPCS: 70450; 72125; 73110

== ENCOUNTER → 2018-06-01 | Outpatient (CLI) | payer MEDICARE ==
[~2018-06-01] MED LIST changes: -AMLO10TA2 PO; +AMLO10TA6 PO
--- NOTE | 2018-06-01 16:42 | Diagnostic Imaging Report ---
INDICATION: Routine screening. COMPARISON: Prior mammogram from 05/31/2017 and 05/17/2016. EXAMINATION: 2D and 3D bilateral screening mammography was performed with CAD. The current study was also evaluated with a Computer Aided Detection (CAD) system. FINDINGS: Both breasts are heterogeneously dense, limiting the sensitivity of mammography. No dominant mass or malignant appearing microcalcifications are seen. Axillae are unremarkable. IMPRESSION: No mammographic features suspicious for malignancy are identified. ACR BI-RADS Category 1: Negative. Result letter will be mailed to the patient. Note: At least 10% of breast cancer is not imaged by mammography. Dictated on workstation # [id number]
== END ==
LOC: RAD 11:21
PROVIDERS: ATTEND Internal Medicine
DX: Z12.31 Encounter for screening mammogram for malignant neoplasm of breast (principal)
CPT/HCPCS: 77067

== ENCOUNTER → 2018-08-22 | Outpatient (CLI) | payer MEDICARE ==
[~2018-08-22] MED LIST changes: -AMLO10TA6 PO; +AMLO10TA7 PO
--- NOTE | 2018-08-22 15:15 | Diagnostic Imaging Report ---
PROCEDURE: US Thyroid. TECHNIQUE: Multiple real-time grayscale images were obtained of the thyroid in various projections. INDICATION: Thyroid nodules. COMPARISON: Correlation is made with prior exam from 01/19/2017. FINDINGS: Right lobe of the thyroid measures 4.7 x 2.2 x 1.6 cm and the left lobe measures 4.1 x 1.5 x 1.5 cm. Both lobes are heterogeneous. Hypoechoic nodule in the lower pole of the right lobe measures 1.4 x 1.5 x 0.9 cm, stable when compared with prior exam. No new mass is detected. IMPRESSION: Stable right lobe thyroid nodule when compared with examination from 01/19/2017. Dictated by: Dictated on workstation # [id number]
== END ==
LOC: RAD 13:59
PROVIDERS: ATTEND Otolaryngology Otolaryngology/Facial Plastic Surgery
DX: E04.2 Nontoxic multinodular goiter (principal)
CPT/HCPCS: 76536

== ENCOUNTER → 2019-03-15 | Outpatient (CLI) | payer MEDICARE | LOC: CARD 09:31 | PROVIDERS: ATTEND Internal Medicine Interventional Cardiology | DX: I08.3 Combined rheumatic disorders of mitral, aortic and tricuspid valves (principal); I47.1 Supraventricular tachycardia; E78.5 Hyperlipidemia, unspecified; I10 Essential (primary) hypertension; I27.20 Pulmonary hypertension, unspecified | CPT/HCPCS: 93306 ==

== ENCOUNTER → 2019-06-21 | Outpatient (CLI) | payer MEDICARE ==
--- NOTE | 2019-06-24 09:04 | Diagnostic Imaging Report ---
INDICATION: Screening The current study was also evaluated with a Computer Aided Detection (CAD) system. 3-D Tomographic imaging was also performed. Comparison made with prior examination of 06/01/2018, 05/31/2017, 05/17/2016. FINDINGS: The fibroglandular tissue is heterogeneously dense bilaterally. There are a few benign type calcifications. There is no new dominant mass, spiculated lesion or suspicious calcification identified. Skin, nipples and axilla are unremarkable. IMPRESSION: Category 2 benign. ACR BI-RADS Category 2: Benign findings. Result letter will be mailed to the patient. Note: At least 10% of breast cancer is not imaged by mammography. Dictated by: Dictated on workstation # [id number]
== END ==
LOC: RAD 11:16
PROVIDERS: ATTEND Internal Medicine
DX: Z12.31 Encounter for screening mammogram for malignant neoplasm of breast (principal)
CPT/HCPCS: 77067

== ENCOUNTER → 2020-10-01 | Outpatient (CLI) | payer MEDICARE ==
[~2020-10-01] MED LIST changes: +ALPR.25T PO; -ALPR0.254 PO; +AMLO-251 PO; -AMLO10TA7 PO; +ASPI-1238 PO; -ASPI-983 PO
--- NOTE | 2020-10-01 13:18 | Diagnostic Imaging Report ---
PROCEDURE: US Thyroid. TECHNIQUE: Multiple Real-time grayscale images were obtained of the thyroid in various projections. INDICATION: Followup thyroid nodule. COMPARISON: 08/22/2018. FINDINGS: The right lobe measures 4.4 x 1.8 x 1.6 cm. The previously measured nodule in the midportion of the right lobe now measures 1.2 x 0.8 x 2.6 cm. This has decreased in size. This also has shown considerable dense calcification causing acoustical shadowing. The remainder of the thyroid is quite heterogeneous. The left lobe measures 3.7 x 1.3 x 1.3 cm. Diffuse heterogeneous appearance of the left lobe. No hypervascularity. Isthmus measures 5 mm. IMPRESSION: Solitary right thyroid nodule has decreased slightly in size with considerable calcification formation in the interim. TI-RADS 3 Dictated by: Dictated on workstation # [id number]
== END ==
LOC: RAD 11:41
PROVIDERS: ATTEND Otolaryngology Otolaryngology/Facial Plastic Surgery
DX: E04.1 Nontoxic single thyroid nodule (principal)
CPT/HCPCS: 76536

== ENCOUNTER → 2020-10-29 | Outpatient (CLI) | payer MEDICARE ==
--- NOTE | 2020-10-29 17:58 | Diagnostic Imaging Report ---
INDICATION: Routine screening Comparison is made with prior mammograms 06/21/2019 and 06/01/2018. 2-D and 3-D bilateral screening mammography was performed with CAD. Both breasts are heterogeneously dense, limiting the sensitivity of mammography. Benign parenchymal and vascular calcifications are noted. No mass or malignant appearing microcalcifications are seen. Axillae are unremarkable. IMPRESSION: BI-RADS Category 2 No mammographic features suspicious for malignancy are identified. ACR BI-RADS Category 2: Benign findings. Result letter will be mailed to the patient. Note: At least 10% of breast cancer is not imaged by mammography. Dictated by: Dictated on workstation # [id number]
== END ==
LOC: RAD 10:45
PROVIDERS: ATTEND Internal Medicine
DX: Z12.31 Encounter for screening mammogram for malignant neoplasm of breast (principal)
CPT/HCPCS: 77063; 77067

== ENCOUNTER → 2020-12-10 | Outpatient (CLI) | payer MEDICARE | LOC: CARD 13:00 | PROVIDERS: ATTEND Nurse Practitioner Family | DX: I08.3 Combined rheumatic disorders of mitral, aortic and tricuspid valves (principal); I27.21 Secondary pulmonary arterial hypertension | CPT/HCPCS: 93306 ==

== ENCOUNTER 2021-01-07 13:32 | Outpatient (RCR) | payer MEDICARE | END 2021-01-07 14:12 | disposition home or self-care (01) | PROVIDERS: ATTEND Internal Medicine | DX: M54.5 Low back pain (principal); M76.01 Gluteal tendinitis, right hip; M79.651 Pain in right thigh ==

== ENCOUNTER 2021-03-10 11:37 | Outpatient (RCR) | payer MEDICARE ==
[~2021-03-10 11:37] MED LIST changes: -SULF1TAB35 PO; +SULF1TAB38 PO
== END 2021-06-08 | disposition home or self-care (01) ==
LOC: CARD 11:37
PROVIDERS: ATTEND Internal Medicine Cardiovascular Disease
DX: R00.2 Palpitations (principal)

== ENCOUNTER 2021-04-13 09:09 | Outpatient (RCR) | payer MEDICARE ==
[2021-04-07 09:20] VITALS: BP 147/85
[2021-04-07] MEDS: ERTAPENEM 1 GM/NS 50 ML IVPB IV SCH ×2 (10:15)
[2021-04-08 09:15] VITALS: BP 168/75
[2021-04-08] MEDS: ERTAPENEM 1 GM/NS 50 ML IVPB IV SCH ×2 (09:21)
[2021-04-09] MEDS: ERTAPENEM 1 GM/NS 50 ML IVPB IV SCH ×2 (09:23)
[2021-04-09 10:06] VITALS: BP 146/72
[2021-04-10] MEDS: ERTAPENEM 1 GM/NS 50 ML IVPB IV SCH ×2 (09:00)
[2021-04-10 09:03] VITALS: BP 157/71
[2021-04-11 09:10] VITALS: BP 181/84
[2021-04-11] MEDS: ERTAPENEM 1 GM/NS 50 ML IVPB IV SCH ×2 (09:13)
[2021-04-12] MEDS: ERTAPENEM 1 GM/NS 50 ML IVPB IV SCH ×2 (09:29)
[2021-04-12 10:02] VITALS: BP 187/89
[~2021-04-13] VITALS: Ht 149.9 cm; Wt 59.5 kg
[2021-04-13] MEDS: ERTAPENEM 1 GM/NS 50 ML IVPB IV SCH ×2 (09:30)
[2021-04-13 09:35] VITALS: BP 138/70
== END 2021-04-13 09:58 | disposition home or self-care (01) ==
LOC: SDC 09:09
PROVIDERS: ATTEND Internal Medicine
DX: N39.0 Urinary tract infection, site not specified (principal)
CPT/HCPCS: 36410; 76937; 96365; C1751